=== PATIENT | male | born 1940 | race Caucasian/White ===

== ENCOUNTER → 2016-10-08 | Outpatient (CLI) | payer MEDICARE, OTHER ==
[~2016-10-08] MED LIST: ALLERCLEAR10 MG PO; ASPIR 8181 MG PO; CLARITIN 10MG T10 MG PO; CYMBALTA30 MG PO; FLOMAX 0.4 MG0.4 MG PO; GLUCOPHAGE 500500 MG PO; HUMALOG100 UNIT/1 SQ; KEFLEX500 MG PO; LACTULOSE10 GM/151 PO; LEVEMIR100 UNIT/1 SC; LEVEMIR100 UNIT/1 SQ; LEVOTHYROXINE88 MCG PO; LEVOXYL88 MCG PO; LIPITOR TAB 2020 MG PO; MELATONIN3 MG PO; MULTI-DAY VITA1 EACH PO; NOVOLOG100 UNIT/1 SC; PLAVIX 75 MG TA75 MG PO; VOLTAREN 0.1%2.5 ML OP
== END ==
LOC: RAD 09-27 08:30
DX: I69.391 Dysphagia following cerebral infarction (principal); R13.12 Dysphagia, oropharyngeal phase
CPT/HCPCS: 74230; 92611-GN

== ENCOUNTER → 2016-11-22 | Day surgery (SDC) | payer MEDICARE, OTHER ==
[~2016-11-22] VITALS: Ht 185.4 cm; Wt 79.4 kg
== END | disposition home or self-care (01) ==
LOC: OR 09:07
PROVIDERS: Internal Medicine Gastroenterology
PROC: 0DP64UZ Removal of Feeding Device from Stomach, Percutaneous Endoscopic Approach (ICD-10-PCS; 2016-11-22)
PROC: 0DH63UZ Insertion of Feeding Device into Stomach, Percutaneous Approach (ICD-10-PCS; principal; 2016-11-22 14:40)
DX: K94.23 Gastrostomy malfunction (principal); R13.10 Dysphagia, unspecified; I10 Essential (primary) hypertension; Z86.73 Personal history of transient ischemic attack (TIA), and cerebral infarction without residual deficits
CPT/HCPCS: 82962; J2250; J7030

== ENCOUNTER 2021-07-19 00:29 | Emergency (ER) | payer MEDICARE, OTHER ==
[~2021-07-19 00:29] MED LIST changes: +AMOX TR-K CLV1 EAC4 GT; +ARTIFICIAL TEA1 EACH OD; +AUGMENTIN 875-1 EACH GT; -CYMBALTA30 MG PO; +CYMBALTA60 MG PO; +FLAGYL500 MG GT; +HUMALOG100 UNIT/2 SC; -LEVOTHYROXINE88 MCG PO; +MAGIC BUTT CREAM TOP; +MAPAP500 MG PO; +OMEPRAZOLE20 MG PO; +SYNTHROID 100100 MCG GT; +TAMIFLU 75 MG C75 MG PO; +TOUJEO MAX300 UNIT/1 SQ; +ZOFRAN 4 MG TAB4 MG GT; +[UNRECOGNIZED DRUG - MIXTURE] PEG
[2021-07-19 01:59] LABS: BUN/CREATININE RATIO 21 (0-10)
[2021-07-19 02:08] LABS: HEMOGLOBIN 13.2 gm/dl (14.0-17.5); RED BLOOD COUNT 4.15 M/UL (4.20-5.50); WHITE BLOOD COUNT 4.9 K/UL (4.5-11.0)
== END 2021-07-19 08:33 | disposition home or self-care (01) ==
LOC: ER1 00:29
PROVIDERS: Physician Assistant
DX: R07.9 Chest pain, unspecified (principal); R10.9 Unspecified abdominal pain; E11.9 Type 2 diabetes mellitus without complications; Z79.4 Long term (current) use of insulin; Z87.891 Personal history of nicotine dependence
CPT/HCPCS: 71045; 80053; 82550; 82553; 84484; 85025; 93005; 99285; Q9967